=== PATIENT | female | born 1960 | race Hispanic/Latino ===

== ENCOUNTER 2016-10-29 07:45 | Inpatient (IN) | payer OTHER ==
[2016-10-23 11:50] VITALS: BMI 27.7
[2016-11-23] MEDS ORDERED: Bacitracin 150,000 UNIT in Sodium Chloride 0.9% Irrig 3,000 ML IR SCH (07:11)
[2016-11-23] MEDS ORDERED: ceFAZolin IV 1 gm in Dextrose 50 ML IVPB ONE (07:15)
[2016-11-23] MEDS ORDERED: Morphine 1 mg/ml preservative-free Inj(Duramorph) ONE (07:45)
[2016-11-23] MEDS ORDERED: Lactated Ringer's 1,000 ML IV ONE ×5 (07:48→11:30)
[2016-11-23] MEDS ORDERED: Midazolam 2 MG/2 ML VIAL ONE (07:50)
[2016-11-23] MEDS ORDERED: Propofol 10 mg/ml Inj (20 ML) ONE (07:50)
[2016-11-23 08:15] LABS: RBC URINE 2 /hpf (0-3); URINE BACTERIA RARE (<OCC); URINE BILIRUBIN NEGATIVE (NEGATIVE); URINE BLOOD 1+ (NEGATIVE); URINE COLOR Yellow (YELLOW); URINE GLUCOSE (UA) NORMAL (Normal); URINE KETONE NEGATIVE (NEGATIVE); URINE LEUKOCYTE ESTERASE 3+ Leu/uL (Negative); URINE PROTEIN NEGATIVE (NEGATIVE); URINE UROBILINOGEN NORMAL mg/dL (0.2-1.0); WBC URINE 4 /hpf (0-5)
[2016-11-23] MEDS ORDERED: Phenylephrine 10 mg/ml Inj ONE (09:33)
[2016-11-23] MEDS ORDERED: Rocuronium 10 mg/ml (5 ml) ONE (09:33)
[2016-11-23] MEDS ORDERED: Lidocaine 4% (Laryng-O-Jet) Kit MM ONE (09:33)
[2016-11-23] MEDS ORDERED: ePHEDrine 50 mg/ml Inj ONE (09:33)
[2016-11-23] MEDS ORDERED: Succinylcholine Chloride 20 mg/ml Syr (5 ml) IV ONE (09:33)
[2016-11-23] MEDS ORDERED: Neostigmine Methylsulfate 3mg/3ml Syringe IV ONE (10:54)
--- NOTE | 2016-11-23 11:30 | PCM.SURG1 ---
Surgeon's Initial Post Op Note - Surgeon's Notes Surgeon: Roshan Pharmacy Services Representative: ERASTO Diop Type of Anesthesia: General Endo, Spinal Anesthesia Administered By: DR Solomon Pre-Operative Diagnosis: Osteoarthritis R hip- post trau,atic exacerbation of preexisiting O/A Operative Findings: as above. hip joint synovitis Post-Operative Diagnosis: as above Operation Performed: R THR. femoral neck osteotomy. arthrotomy/synovectomy. autograft bone graft to acetabulum. release iliopsoas tendon Specimen/Specimens Removed: bone/femoral head/synovium Estimated Blood Loss: EBL {In ML}: 175 Blood Products Given: N/A Drains Used: No Drains Post-Op Condition: Good Date of Surgery/Procedure: 11/23/16 Time of Surgery/Procedure: 09:00 (time in room 7:55/anaesthesia indcution time 7 :55)
[2016-11-23] MEDS ORDERED: Lactated Ringer's 1,000 ML IV SCH (11:45)
[2016-11-23] MEDS ORDERED: Enoxaparin 40 mg Syringe SC ONE (11:46)
[2016-11-23] MEDS: HYDROmorphone 0.5 mg/0.5 ml ISec IVP PRN ×3 (12:10→14:20)
--- NOTE | 2016-11-23 13:58 | RAD ---
Right hip two views History: Status post right total hip arthroplasty. Findings: Status post right total hip arthroplasty. Anatomic alignment of the orthopedic hardware. Remainder of the bony pelvis appears preserved. Overlying surgical belle. Incidentally noted is a distended urinary bladder. Impression: Postsurgical changes of the right proximal femur.
--- NOTE | 2016-11-23 14:14 | RAD ---
PROCEDURE: Intraoperative Fluoroscopy. HISTORY: RT. HIP ARTHRITIS FINDINGS: Fluoroscopic assistance was provided for right total hip arthroplasty. Please refer to the operative report from
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
[2016-11-23] MEDS: ceFAZolin IV 1 gm in Dextrose 50 ML IVPB SCH (17:00)
[2016-11-23] MEDS: HYDROmorphone 1 mg/ml ISec IVP PRN (20:46)
[2016-11-23] MEDS: Sodium Chloride 0.9% 1,000 ML IV SCH (20:53)
[2016-11-24] MEDS: ceFAZolin IV 1 gm in Dextrose 50 ML IVPB SCH (00:19)
[2016-11-24] MEDS: Sodium Chloride 0.9% 1,000 ML IV SCH ×4 (00:45→20:00)
[2016-11-24] MEDS: HYDROmorphone 1 mg/ml ISec IVP PRN ×4 (00:56→20:00)
[2016-11-24 06:14] LABS: BASO % 0.1 % (0.0-2.0); EOS % 0.1 % (0.0-4.0); HEMATOCRIT 27.8 % (34.0-47.0); LYMPH # 1.4 K/uL (1.0-4.3); LYMPH % 11.8 % (20.0-40.0); MEAN CELL VOLUME 91.1 fL (81.0-99.0); MEAN CORPUSCULAR HEMOGLOBIN 30.1 pg (27.0-31.0); MEAN PLATELET VOLUME 11.8 fL (7.2-11.7); MONO # 1.5 K/uL (0.0-0.8); MONO % 12.6 % (0.0-10.0); RED CELL DISTRIBUTION WIDTH 13.3 % (11.5-14.5); WHITE BLOOD COUNT 12.1 K/uL (4.8-10.8)
[2016-11-24 06:28] LABS: INR 1.1
[2016-11-24 06:32] LABS: CHLORIDE 98 mmol/L (98-107)
[2016-11-24 06:33] LABS: POTASSIUM 4.7 mmol/L (3.6-5.2); SODIUM 137 mmol/L (132-148)
[2016-11-24 06:34] LABS: CHOLESTEROL 131 mg/dL (0-199)
[2016-11-24 06:35] LABS: ALB/GLOB RATIO 1.3 (1.0-2.1); ALKALINE PHOSPHATASE 47 U/L (38-126); ALT/SGPT 36 U/L (9-52); AST/SGOT 38 U/L (14-36); BILIRUBIN,TOTAL 0.8 mg/dL (0.2-1.3); BLOOD UREA NITROGEN 10 mg/dL (7-17); CARBON DIOXIDE 26 mmol/L (22-30); GFR AFRICAN-AMERICAN > 60; GLUCOSE,RANDOM 111 mg/dL (65-105); TOTAL PROTEIN 5.3 g/dL (6.3-8.3)
[2016-11-24 06:36] LABS: MAGNESIUM 1.6 mg/dL (1.6-2.3)
[2016-11-24 06:51] LABS: T4 5.52 ug/dL (5.5-11.0)
[2016-11-24 07:05] LABS: THYROID STIMULATING HORMONE 0.39 mIU/L (0.46-4.68)
[2016-11-24] MEDS: Enoxaparin 40 mg Syringe SC SCH (08:12)
--- NOTE | 2016-11-24 09:30 | CP.PCM.PN ---
<Candice Funes - Last Filed: 11/24/16 12:54> Subjective - Date & Time of Evaluation Date of Evaluation: 11/24/16 Time of Evaluation: 09:29 - Subjective Subjective: Patient seen and examined at bedside. Patient complaining of constant, severe pain to right lower extremity. She states she was unable to sleep last night due to pain. She also reports swelling to affected leg. Patient also complains of mild nausea and two episodes of emesis following surgery relieved by Zofran. She reports not having bowel movement but has not eaten since Wednesday. Patient denies dysuria but admits to one day of increased urinary frequency as she has been drinking increased fluids. She denies fever, chills, chest pain, palpitations, cough, and abdominal pain. Objective - Vital Signs/Intake and Output Vital Signs (last 24 hours): Temp Pulse Resp BP Pulse Ox 98.6 F 83 20 99/52 L 95 11/24/16 08:38 11/24/16 08:38 11/24/16 08:38 11/24/16 08:38 11/24/16 08:38 Intake and Output: 11/24/16 11/24/16 06:59 18:59 Intake Total 1470 Output Total 700 Balance 770 - Medications Medications: Current Medications Docusate Sodium (Colace) 100 mg PO BID [facility] Enoxaparin Sodium (Lovenox) 40 mg SC DAILY@0900 [facility] Last Admin: 11/24/16 08:12 Dose: 40 mg Hydromorphone HCl (Dilaudid) 1 mg IVP Q4H PRN PRN Reason: Pain, moderate (4-7) Stop: 11/24/16 15:00 Last Admin: 11/24/16 08:12 Dose: 1 mg Sodium Chloride (Sodium Chloride 0.9%) 1,000 mls @ 125 mls/hr IV .Q8H [facility] Last Admin: 11/24/16 00:45 Dose: 125 mls/hr Ondansetron HCl (Zofran Inj) 4 mg IVP Q6H PRN PRN Reason: Nausea/Vomiting Last Admin: 11/24/16 00:46 Dose: 4 mg - Labs Labs: 11/24/16 06:00 11/24/16 06:00 PT 12.2 SECONDS (9.7-12.2) 11/24/16 06:00 INR 1.1 11/24/16 06:00 APTT 24 SECONDS (21-34) 11/24/16 06:00 - Constitutional Appears: Non-toxic, Other (very emotional on exam ) - Head Exam Head Exam: ATRAUMATIC, NORMAL INSPECTION, NORMOCEPHALIC - Eye Exam Eye Exam: EOMI, Normal appearance - ENT Exam ENT Exam: Mucous Membranes Moist - Neck Exam Neck Exam: Full ROM, Normal Inspection - Respiratory Exam Respiratory Exam: Clear to Ausculation Bilateral, NORMAL BREATHING PATTERN - Cardiovascular Exam Cardiovascular Exam: +S1, +S2. absent: Tachycardia, Murmur - GI/Abdominal Exam GI & Abdominal Exam: Soft, Normal Bowel Sounds - Extremities Exam Extremities Exam: Tenderness. absent: Pedal Edema Additional comments: Right lower extremity in compression wrap. Mild edema to right lower extremity, tenderness to palpation. Patient complains of pain when moving extremity. Pulses intact bilaterally. - Neurological Exam Neurological Exam: Alert, Awake, Oriented x3 - Psychiatric Exam Psychiatric exam: Anxious Additional comments: emotional - Skin Skin Exam: Intact, Normal Color Assessment and Plan - Assessment and Plan (Free Text) Assessment: 1. Status post right hip arthroplasty Orthopedic Surgeon, Dr. Islas Stat Percocet tab given. Continue dilaudid 1 mg IVP q4h PRN and start percocet 5/325 mg 1 tab po q6h prn for breakthrough pain On Lovenox 40 mg SC daily for anticoagulation Started on Ancef IV 1 gm IVPB q8h Zofran 4 mg IVP q6h PRN for nausea Normal Saline IV @125 cc PT/OT Encouraged to continue use incentive spirometry 2. Positive Urinalysis UA positive for Leukocyte Esterase 3+, however contaminated with 12 squamous epithelial cells. Patient asymptomatic. Will not treat. 3. Prophylaxis Lovenox 40 mg SC daoly SCD Zofran 4 mg IVP q6h PRN Colace 100 mg po BID Heart Healthy Diet <Alex Cevallos - Last Filed: 11/24/16 18:10> Objective - Vital Signs/Intake and Output Vital Signs (last 24 hours): Temp Pulse Resp BP Pulse Ox 98.2 F 79 20 93/62 L 95 11/24/16 16:30 11/24/16 16:30 11/24/16 16:30 11/24/16 16:30 11/24/16 16:30 Intake and Output: 11/24/16 11/24/16 06:59 18:59 Intake Total 1470 Output Total 700 300 Balance 770 -300 - Medications Medications: Current Medications Docusate Sodium (Colace) 100 mg PO BID [facility] Last Admin: 11/24/16 11:13 Dose: 100 mg Enoxaparin Sodium (Lovenox) 40 mg SC DAILY@0900 [facility] Last Admin: 11/24/16 08:12 Dose: 40 mg Sodium Chloride (Sodium Chloride 0.9%) 1,000 mls @ 125 mls/hr IV .Q8H [facility] Last Admin: 11/24/16 11:14 Dose: 125 mls/hr Ondansetron HCl (Zofran Inj) 4 mg IVP Q6H PRN PRN Reason: Nausea/Vomiting Last Admin: 11/24/16 00:46 Dose: 4 mg Oxycodone/Acetaminophen (Percocet 5/325 Mg Tab) 1 tab PO Q6H PRN PRN Reason: Pain, moderate (4-7) Stop: 11/27/16 10:47 - Labs Labs: 11/24/16 06:00 11/24/16 06:00 PT 12.2 SECONDS (9.7-12.2) 11/24/16 06:00 INR 1.1 11/24/16 06:00 APTT 24 SECONDS (21-34) 11/24/16 06:00 Attending/Attestation - Attestation I have personally seen and examined this patient.: Yes I have fully participated in the care of the patient.: Yes I have reviewed all pertinent clinical information, including history, physical exam and plan: Yes Notes (Text): 11/24/16 18:08 Patient was seen and examined at bedside with the resident today Patient complains of pain and states that the pain medication is not controlling the pain very well We will add Percocet for breakthrough pain We will continue physical therapy and we will plan for discharge to subacute rehabilitation center when cleared by orthopedics. Urinalysis noted but no need for treatment. I agree with the above history and physical and assessment/plan by the resident.
[2016-11-24] MEDS ORDERED: Oxycodone/Acetaminophen 5/325 mg Tab PO ONE (10:45)
[2016-11-24] MEDS: Oxycodone/Acetaminophen 5/325 mg Tab PO PRN (18:24)
[2016-11-25] MEDS: HYDROmorphone 1 mg/ml ISec IVP PRN ×5 (00:01→18:26)
[2016-11-25] MEDS: Oxycodone/Acetaminophen 5/325 mg Tab PO PRN ×3 (01:22→13:59)
[2016-11-25] MEDS: Sodium Chloride 0.9% 1,000 ML IV SCH ×3 (05:47→14:25)
[2016-11-25 07:15] LABS: BASO % 0.4 % (0.0-2.0); EOS # 0.2 K/uL (0.0-0.7); EOS % 1.8 % (0.0-4.0); HEMATOCRIT 26.7 % (34.0-47.0); LYMPH # 2.2 K/uL (1.0-4.3); LYMPH % 21.8 % (20.0-40.0); MEAN CELL VOLUME 91.8 fL (81.0-99.0); MEAN CORPUSCULAR HEMOGLOBIN 30.4 pg (27.0-31.0); MEAN CORPUSCULAR HGB CONC 33.2 g/dL (33.0-37.0); MEAN PLATELET VOLUME 11.3 fL (7.2-11.7); MONO # 1.4 K/uL (0.0-0.8); MONO % 13.8 % (0.0-10.0); RED CELL DISTRIBUTION WIDTH 13.1 % (11.5-14.5); WHITE BLOOD COUNT 10.3 K/uL (4.8-10.8)
[2016-11-25 08:08] LABS: CHLORIDE 100 mmol/L (98-107); POTASSIUM 3.8 mmol/L (3.6-5.2); SODIUM 138 mmol/L (132-148)
[2016-11-25 08:10] LABS: ALB/GLOB RATIO 1.3 (1.0-2.1); AST/SGOT 36 U/L (14-36); BILIRUBIN,TOTAL 0.6 mg/dL (0.2-1.3); CARBON DIOXIDE 28 mmol/L (22-30); GFR AFRICAN-AMERICAN > 60; TOTAL PROTEIN 5.4 g/dL (6.3-8.3)
[2016-11-25 08:11] LABS: ALKALINE PHOSPHATASE 56 U/L (38-126); ALT/SGPT 29 U/L (9-52); BLOOD UREA NITROGEN 7 mg/dL (7-17); CALCIUM 7.7 mg/dl (8.6-10.4); GLUCOSE,RANDOM 105 mg/dL (65-105)
[2016-11-25 08:12] LABS: MAGNESIUM 1.8 mg/dL (1.6-2.3)
[2016-11-25] MEDS: Enoxaparin 40 mg Syringe SC SCH (09:17)
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
--- NOTE | 2016-11-25 17:10 | CP.PCM.PN ---
<ShantelCandice - Last Filed: 11/25/16 17:06> Subjective - Date & Time of Evaluation Date of Evaluation: 11/25/16 Time of Evaluation: 08:06 - Subjective Subjective: Patient seen and examined at bedside. Patient continues to be emotional and states she has significant pain. She reports IV dilaudid helped to alleviate pain. Patient states she has low po intake due to dryness of lips and throat. She has not had a bowel movement in 3 days. She denies difficulty with urination , abdominal pain, nausea, and vomiting. She also denies fever, chills, chest pain, cough, and shortness of breath. Objective - Vital Signs/Intake and Output Vital Signs (last 24 hours): Temp Pulse Resp BP Pulse Ox 98.7 F 84 20 103/65 95 11/25/16 16:26 11/25/16 16:26 11/25/16 16:26 11/25/16 16:26 11/25/16 16:26 Intake and Output: 11/25/16 11/25/16 06:59 18:59 Intake Total 1120 Balance 1120 - Medications Medications: Current Medications Docusate Sodium (Colace) 100 mg PO BID [facility] Last Admin: 11/25/16 09:17 Dose: 100 mg Enoxaparin Sodium (Lovenox) 40 mg SC DAILY@0900 [facility] Last Admin: 11/25/16 09:17 Dose: 40 mg Hydromorphone HCl (Dilaudid) 1 mg IVP Q4H PRN PRN Reason: Pain, severe (8-10) Last Admin: 11/25/16 14:23 Dose: 1 mg Sodium Chloride (Sodium Chloride 0.9%) 1,000 mls @ 125 mls/hr IV .Q8H [facility] Last Admin: 11/25/16 14:25 Dose: 125 mls/hr Ondansetron HCl (Zofran Inj) 4 mg IVP Q6H PRN PRN Reason: Nausea/Vomiting Last Admin: 11/24/16 00:46 Dose: 4 mg Oxycodone/Acetaminophen (Percocet 5/325 Mg Tab) 1 tab PO Q6H PRN PRN Reason: Pain, moderate (4-7) Stop: 11/27/16 10:47 Last Admin: 11/25/16 13:59 Dose: 1 tab Zolpidem Tartrate (Ambien) 5 mg PO HS PRN PRN Reason: Insomnia - Labs Labs: 11/25/16 07:04 11/25/16 07:04 PT 12.2 SECONDS (9.7-12.2) 11/24/16 06:00 INR 1.1 11/24/16 06:00 APTT 24 SECONDS (21-34) 11/24/16 06:00 - Constitutional Appears: Non-toxic, No Acute Distress - Head Exam Head Exam: ATRAUMATIC, NORMAL INSPECTION, NORMOCEPHALIC - Eye Exam Eye Exam: EOMI, Normal appearance, PERRL - ENT Exam ENT Exam: Mucous Membranes Moist - Neck Exam Neck Exam: Normal Inspection - Respiratory Exam Respiratory Exam: Clear to Ausculation Bilateral, NORMAL BREATHING PATTERN. absent: Rales, Rhonchi, Wheezes - Cardiovascular Exam Cardiovascular Exam: +S1, +S2. absent: Tachycardia - GI/Abdominal Exam GI & Abdominal Exam: Soft, Normal Bowel Sounds. absent: Tenderness - Extremities Exam Additional comments: right lower extremity in compression bandage. tender to palpation. Pulses intact throughout. - Neurological Exam Neurological Exam: Alert, Awake, Oriented x3 - Psychiatric Exam Psychiatric exam: Anxious - Skin Skin Exam: Intact, Normal Color, Warm Assessment and Plan - Assessment and Plan (Free Text) Assessment: 1. Status post right hip arthroplasty 11/25: Patient waiting authorization for Daily at [facility] for rehab. Patient will be discharged with Percocet 5/325 1 tab po q4h PRN for moderate pain and Percocet 5/325 2 tab po q4h PRN for severe pain. Continue dilaudid 1 mg IVP q4h PRN and start percocet 5/325 mg 1 tab po q6h prn for breakthrough pain On Lovenox 40 mg SC daily for anticoagulation Started on Ancef IV 1 gm IVPB q8h Zofran 4 mg IVP q6h PRN for nausea Normal Saline IV @125 cc PT/OT Encouraged to continue use incentive spirometry Orthopedic Surgeon, Dr. Islas 2. Positive Urinalysis UA positive for Leukocyte Esterase 3+, however contaminated with 12 squamous epithelial cells. Patient asymptomatic. Will not treat. 3. Prophylaxis Lovenox 40 mg SC daoly SCD Zofran 4 mg IVP q6h PRN Colace 100 mg po BID Heart Healthy Diet <Mart,Alex M - Last Filed: 11/25/16 17:23> Objective - Vital Signs/Intake and Output Vital Signs (last 24 hours): Temp Pulse Resp BP Pulse Ox 98.7 F 84 20 103/65 95 11/25/16 16:26 11/25/16 16:26 11/25/16 16:26 11/25/16 16:26 11/25/16 16:26 Intake and Output: 11/25/16 11/25/16 06:59 18:59 Intake Total 1120 Balance 1120 - Medications Medications: Current Medications Docusate Sodium (Colace) 100 mg PO BID [facility] Last Admin: 11/25/16 09:17 Dose: 100 mg Enoxaparin Sodium (Lovenox) 40 mg SC DAILY@0900 [facility] Last Admin: 11/25/16 09:17 Dose: 40 mg Hydromorphone HCl (Dilaudid) 1 mg IVP Q4H PRN PRN Reason: Pain, severe (8-10) Last Admin: 11/25/16 14:23 Dose: 1 mg Ondansetron HCl (Zofran Inj) 4 mg IVP Q6H PRN PRN Reason: Nausea/Vomiting Last Admin: 11/24/16 00:46 Dose: 4 mg Oxycodone/Acetaminophen (Percocet 5/325 Mg Tab) 1 tab PO Q6H PRN PRN Reason: Pain, moderate (4-7) Stop: 11/27/16 10:47 Last Admin: 11/25/16 13:59 Dose: 1 tab Zolpidem Tartrate (Ambien) 5 mg PO HS PRN PRN Reason: Insomnia - Labs Labs: 11/25/16 07:04 11/25/16 07:04 PT 12.2 SECONDS (9.7-12.2) 11/24/16 06:00 INR 1.1 11/24/16 06:00 APTT 24 SECONDS (21-34) 11/24/16 06:00 Attending/Attestation - Attestation I have personally seen and examined this patient.: Yes I have fully participated in the care of the patient.: Yes I have reviewed all pertinent clinical information, including history, physical exam and plan: Yes Notes (Text): 11/25/16 17:23 Patient was seen and examined at bedside with the resident Patient appears comfortable today Physical therapy is in progress We will continue pain management and also we will continue with DVT prophylaxis Stop the IV fluids. Patient is tolerating diet Discussed the plan of care with the resident and agree with the above history and physical and assessment/plan by the resident. Discharge planning is in progress to acute versus subacute rehabilitation center
--- NOTE | 2016-11-25 17:22 | CP.PCM.PN ---
Subjective - Date & Time of Evaluation Date of Evaluation: 11/25/16 Time of Evaluation: 17:20 - Subjective Subjective: S- pt with minimal post op discomfort Objective - Vital Signs/Intake and Output Vital Signs (last 24 hours): Temp Pulse Resp BP Pulse Ox 98.7 F 84 20 103/65 95 11/25/16 16:26 11/25/16 16:26 11/25/16 16:26 11/25/16 16:26 11/25/16 16:26 Intake and Output: 11/25/16 11/25/16 06:59 18:59 Intake Total 1120 Balance 1120 - Medications Medications: Current Medications Docusate Sodium (Colace) 100 mg PO BID [facility] Last Admin: 11/25/16 09:17 Dose: 100 mg Enoxaparin Sodium (Lovenox) 40 mg SC DAILY@0900 [facility] Last Admin: 11/25/16 09:17 Dose: 40 mg Hydromorphone HCl (Dilaudid) 1 mg IVP Q4H PRN PRN Reason: Pain, severe (8-10) Last Admin: 11/25/16 14:23 Dose: 1 mg Sodium Chloride (Sodium Chloride 0.9%) 1,000 mls @ 125 mls/hr IV .Q8H [facility] Last Admin: 11/25/16 14:25 Dose: 125 mls/hr Ondansetron HCl (Zofran Inj) 4 mg IVP Q6H PRN PRN Reason: Nausea/Vomiting Last Admin: 11/24/16 00:46 Dose: 4 mg Oxycodone/Acetaminophen (Percocet 5/325 Mg Tab) 1 tab PO Q6H PRN PRN Reason: Pain, moderate (4-7) Stop: 11/27/16 10:47 Last Admin: 11/25/16 13:59 Dose: 1 tab Zolpidem Tartrate (Ambien) 5 mg PO HS PRN PRN Reason: Insomnia - Labs Labs: 11/25/16 07:04 11/25/16 07:04 PT 12.2 SECONDS (9.7-12.2) 11/24/16 06:00 INR 1.1 11/24/16 06:00 APTT 24 SECONDS (21-34) 11/24/16 06:00 - Additional Findings Additional findings: Objective stance/gait- defrred R hip wound benign thigh soft pt comfortabler and eating Miguel Cr at time of encounter orthopedically stABLE C POST OP xRAYS- EXCELLENT POSITION OF CONSTRIUCT Assessment and Plan - Assessment and Plan (Free Text) Assessment: A- s/p THR R P orthopediclaly stable for subacute rehab
[2016-11-25] MEDS ORDERED: Benzocaine/Menthol (Cepacol) Lozenge MT PRN (17:58)
[2016-11-25] MEDS ORDERED: Vitamins A & D Oint UD Foilpak TOP PRN (17:59)
[2016-11-26] MEDS: Oxycodone/Acetaminophen 5/325 mg Tab PO PRN ×2 (04:42→10:45)
[2016-11-26 06:26] LABS: BASO % 0.4 % (0.0-2.0); EOS # 0.1 K/uL (0.0-0.7); HEMATOCRIT 24.3 % (34.0-47.0); LYMPH # 1.5 K/uL (1.0-4.3); LYMPH % 17.3 % (20.0-40.0); MEAN CELL VOLUME 90.5 fL (81.0-99.0); MEAN CORPUSCULAR HEMOGLOBIN 30.9 pg (27.0-31.0); MEAN CORPUSCULAR HGB CONC 34.2 g/dL (33.0-37.0); MEAN PLATELET VOLUME 11.1 fL (7.2-11.7); MONO # 1.2 K/uL (0.0-0.8); MONO % 13.6 % (0.0-10.0); WHITE BLOOD COUNT 8.9 K/uL (4.8-10.8)
[2016-11-26] MEDS ORDERED: Oxycodone/Acetaminophen 5/325 mg Tab PO PRN (07:05)
[2016-11-26 07:28] LABS: CHLORIDE 103 mmol/L (98-107); POTASSIUM 3.7 mmol/L (3.6-5.2); SODIUM 135 mmol/L (132-148)
[2016-11-26 07:30] LABS: GFR AFRICAN-AMERICAN > 60
[2016-11-26 07:31] LABS: ALB/GLOB RATIO 1.2 (1.0-2.1); ALKALINE PHOSPHATASE 63 U/L (38-126); ALT/SGPT 31 U/L (9-52); AST/SGOT 36 U/L (14-36); BLOOD UREA NITROGEN 5 mg/dL (7-17); CALCIUM 7.9 mg/dl (8.6-10.4); CARBON DIOXIDE 25 mmol/L (22-30); GLUCOSE,RANDOM 106 mg/dL (65-105); TOTAL PROTEIN 5.3 g/dL (6.3-8.3)
[2016-11-26 08:48] VITALS: TEMP 99.1
[2016-11-26] MEDS: Enoxaparin 40 mg Syringe SC SCH (09:07)
[2016-11-26 13:14] VITALS: BP 100/59; PULSE 80; RESP 18; O2SAT 96
--- NOTE | 2016-11-26 14:08 | CP.PCM.PN ---
<TedCandice lu - Last Filed: 11/26/16 14:03> Subjective - Date & Time of Evaluation Date of Evaluation: 11/26/16 Time of Evaluation: 14:03 - Subjective Subjective: Patient seen and examined at bedside. Patient's right hip pain is more controlled today. Patient notes applying ice to the affected area is helping significantly. She is doing well with physical therapy. She denies fever, chills , chest pain, shortness of breath, abdominal pain, nausea, vomiting, diarrhea, and urinary symptoms. Patient has not had bowel movement but states she has not eaten much food since surgery due to irritation to throat. Objective - Vital Signs/Intake and Output Vital Signs (last 24 hours): Temp Pulse Resp BP Pulse Ox 99.1 F 80 18 100/59 L 96 11/26/16 13:13 11/26/16 13:13 11/26/16 13:13 11/26/16 13:13 11/26/16 13:13 Intake and Output: 11/26/16 11/26/16 06:59 18:59 Intake Total 240 Balance 240 - Medications Medications: Current Medications Benzocaine/Menthol (Cepacol Sore Throat) 1 kae MT BID PRN PRN Reason: Sore Throat Docusate Sodium (Colace) 100 mg PO BID [facility] Last Admin: 11/26/16 09:07 Dose: 100 mg Enoxaparin Sodium (Lovenox) 40 mg SC DAILY@0900 [facility] Last Admin: 11/26/16 09:07 Dose: 40 mg Ondansetron HCl (Zofran Inj) 4 mg IVP Q6H PRN PRN Reason: Nausea/Vomiting Last Admin: 11/24/16 00:46 Dose: 4 mg Oxycodone/Acetaminophen (Percocet 5/325 Mg Tab) 1 tab PO Q6H PRN PRN Reason: Pain, moderate (4-7) Stop: 11/27/16 10:47 Last Admin: 11/26/16 10:45 Dose: 1 tab Oxycodone/Acetaminophen (Percocet 5/325 Mg Tab) 2 tab PO Q4H PRN PRN Reason: Pain, severe (8-10) Stop: 11/29/16 07:06 Vitamin A (Vitamin A & D Oint Ud Foilpak) 1 ea TOP BID PRN PRN Reason: dry lips Zolpidem Tartrate (Ambien) 5 mg PO HS PRN PRN Reason: Insomnia - Labs Labs: 11/26/16 06:04 11/26/16 06:04 PT 12.2 SECONDS (9.7-12.2) 11/24/16 06:00 INR 1.1 11/24/16 06:00 APTT 24 SECONDS (21-34) 11/24/16 06:00 - Constitutional Appears: Non-toxic, No Acute Distress - Head Exam Head Exam: ATRAUMATIC, NORMAL INSPECTION, NORMOCEPHALIC - Eye Exam Eye Exam: EOMI, Normal appearance, PERRL - ENT Exam ENT Exam: Mucous Membranes Moist, Normal Exam - Neck Exam Neck Exam: Full ROM, Normal Inspection - Respiratory Exam Respiratory Exam: Clear to Ausculation Bilateral, NORMAL BREATHING PATTERN. absent: Rales, Rhonchi, Wheezes - Cardiovascular Exam Cardiovascular Exam: +S1, +S2. absent: Tachycardia - GI/Abdominal Exam GI & Abdominal Exam: Soft, Normal Bowel Sounds. absent: Tenderness - Extremities Exam Additional comments: Right lower extremity in compression wrap to hip region. No edema noted to affected extremity. - Neurological Exam Neurological Exam: Alert, Awake, Oriented x3 - Psychiatric Exam Psychiatric exam: Normal Affect, Normal Mood - Skin Skin Exam: Intact, Normal Color, Warm Assessment and Plan - Assessment and Plan (Free Text) Assessment: 1. Status post right hip arthroplasty 11/25: Patient waiting authorization for subacute rehab Daily at [facility]. Currently awaiting for [facility] authorization for subacute rehab. Patient will be discharged with Percocet 5/325 1 tab po q4h PRN for moderate pain and Percocet 5/325 2 tab po q4h PRN for severe pain and Lovenox. Continue dilaudid 1 mg IVP q4h PRN and start percocet 5/325 mg 1 tab po q6h prn for breakthrough pain On Lovenox 40 mg SC daily for anticoagulation Started on Ancef IV 1 gm IVPB q8h Zofran 4 mg IVP q6h PRN for nausea Normal Saline IV @125 cc PT/OT Encouraged to continue use incentive spirometry Orthopedic Surgeon, Dr. Islas 2. Positive Urinalysis UA positive for Leukocyte Esterase 3+, however contaminated with 12 squamous epithelial cells. Patient asymptomatic. Will not treat. 3. Prophylaxis Lovenox 40 mg SC daily SCD Zofran 4 mg IVP q6h PRN Colace 100 mg po BID Heart Healthy Diet <Alex Cevallos - Last Filed: 11/26/16 16:22> Objective - Vital Signs/Intake and Output Vital Signs (last 24 hours): Temp Pulse Resp BP Pulse Ox 99.1 F 80 18 100/59 L 96 11/26/16 13:13 11/26/16 13:13 11/26/16 13:13 11/26/16 13:13 11/26/16 13:13 Intake and Output: 11/26/16 11/26/16 06:59 18:59 Intake Total 240 Balance 240 - Labs Labs: 11/26/16 06:04 11/26/16 06:04 PT 12.2 SECONDS (9.7-12.2) 11/24/16 06:00 INR 1.1 11/24/16 06:00 APTT 24 SECONDS (21-34) 11/24/16 06:00 Attending/Attestation - Attestation I have personally seen and examined this patient.: Yes I have fully participated in the care of the patient.: Yes I have reviewed all pertinent clinical information, including history, physical exam and plan: Yes Notes (Text): 11/26/16 16:22 Patient was seen and examined at bedside with the resident She is awake alert without any acute distress Leg pain is improved Patient is clear for discharge to subacute rehabilitation Center We will discharge the patient to [facility] today
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
== END 2016-11-26 14:43 | DRG 818 ==
LOC: C.9S 11-23 06:13 → C.6T 11-23 14:38
PROVIDERS: ADMIT Orthopaedic Surgery; ATTEND Orthopaedic Surgery
PROC: 0SR90JZ Replacement of Right Hip Joint with Synthetic Substitute, Open Approach (ICD-10-PCS; principal; 2016-11-23 07:45)
DX: M16.51 Unilateral post-traumatic osteoarthritis, right hip (principal); F17.210 Nicotine dependence, cigarettes, uncomplicated; G89.18 Other acute postprocedural pain; V89.2XXS Person injured in unspecified motor-vehicle accident, traffic, sequela; Z87.442 Personal history of urinary calculi